=== PATIENT | female | born 1985 | race Asian ===

== ENCOUNTER 2017-12-09 16:03 | Emergency (ER) | payer SELFPAY ==
[~2017-12-09] VITALS: Ht 160 cm; Wt 57.6 kg
[2017-12-09 17:09] LABS: APPEARANCE,URINE SLIGHTLY CLOUDY; BILIRUBIN, URINE NEGATIVE (NEGATIVE); COLOR,URINE AMBER; GLUCOSE, URINE (UA) NEGATIVE (NEGATIVE); KETONES,URINE 1+ (NEGATIVE); LEUKOCYTE ESTERASE ,URINE NEGATIVE (NEGATIVE); NITRITE,URINE NEGATIVE (NEGATIVE); PH,URINE 8 (4.5-8.0); PROTEIN,URINE NEGATIVE (NEGATIVE); UROBILINOGEN,URINE NORMAL MG/DL (0.0-1.0)
[2017-12-09 17:25] LABS: EOSINOPHILS % (AUTO) 0.7 % (0.0-3.0); HEMATOCRIT 42.7 % (37.0-47.0); HEMOGLOBIN 14.6 G/DL (12.0-16.0); LYMPHOCYTES % (AUTO) 32.3 % (20.0-45.0); MEAN CORPUSCULAR VOLUME 81 FL (80-99); MONOCYTES % (AUTO) 6.8 % (1.0-10.0); NEUTROPHILS % (AUTO) 59.3 % (45.0-75.0); PLATELET COUNT 304 K/UL (150-450); RED BLOOD COUNT 5.28 M/UL (4.20-5.40); WHITE BLOOD COUNT 8.6 K/UL (4.8-10.8)
[2017-12-09 17:28] LABS: ANION GAP 7 mmol/L (5-15); BLOOD UREA NITROGEN 18 mg/dL (7-18); CALCIUM 9.3 MG/DL (8.5-10.1); CARBON DIOXIDE 29 MMOL/L (21-32); CHLORIDE 103 MMOL/L (98-107); CREATININE 0.8 MG/DL (0.55-1.30); POTASSIUM 3.5 MMOL/L (3.5-5.1); SODIUM 139 MMOL/L (136-145)
[2017-12-09 17:43] LABS: ALANINE AMINOTRANSFERASE 20 U/L (12-78); ALBUMIN/GLOBULIN RATIO 1.1 (1.0-2.7); ALKALINE PHOSPHATASE 87 U/L (46-116); ASPARTATE AMINO TRANSFERASE 15 U/L (15-37); BILIRUBIN,TOTAL 0.4 MG/DL (0.2-1.0); CREATINE KINASE 108 U/L (26-308)
[2017-12-09 18:00] VITALS: BP 112/82
--- NOTE | 2017-12-09 18:14 | Emergency Room Report ---
History of Present Illness General Chief Complaint: Dizziness Source: Patient Present Illness HPI Patient presents with weakness and dizziness that began on Tuesday. She feels that she is about to pass out. She also feels shaky. She thought that she had been working out excessively and that was related to that possible dehydration. She taken more fluids but this didn't help. She's had some palpitations. Denies any headache. She feels nauseated but has not vomited. There is no change in stool. Her last period was the end of last month by the and normal for her. She doesn't believe she is . There is some stress with her job. Denies any previous medical problems. She drank alcohol last weekend. Smokes THC, no new supplier. No ear pain, tinitis, sore throat, dyspnea, chest pain, abdominal pain, dysuria , extremity pain, rashes. No ill contacts or recent travel Allergies: Coded Allergies: No Known Allergies (Unverified , 12/09/17) Patient History Past Medical History: see triage record Social History: Reports: smoking - rare, alcohol use; Denies: drug use Social History Narrative commercial real estate assistant Now: No Reviewed Nursing Documentation: PMH: Agreed; PSxH: Agreed Nursing Documentation-PMH Past Medical History: No History, Except For Hx Asthma: Yes Review of Systems All Other Systems: negative except mentioned in HPI Physical Exam Vital Signs Date Time Temp Pulse Resp B/P (MAP) Pulse Ox O2 Delivery O2 Flow Rate FiO2 12/09/17 16:07 98.7 70 15 118/88 97 Room Air 98.8 Sp02 EP Interpretation: reviewed, normal General Appearance: well appearing, no apparent distress, GCS 15 Head: normocephalic Eyes: bilateral eye normal inspection, bilateral eye PERRL, bilateral eye EOMI ENT: moist mucus membranes Neck: supple Respiratory: lungs clear, normal breath sounds Cardiovascular #1: regular rate, rhythm Cardiovascular #2: 2+ radial (R) Gastrointestinal: normal inspection, normal bowel sounds, non tender, no mass, non-distended Musculoskeletal: back normal, gait/station normal, normal range of motion Neurologic: alert, oriented x3, technology specialist III-XII nml as tested, motor strength/tone normal, DTRs symmetric, sensory intact, cerebellar normal, normal gait, speech normal Psychiatric: mood/affect normal - slightly anxious Skin: normal inspection, warm/dry Medical Decision Making Diagnostic Impression: Primary Impression: Weakness Additional Impression: Dizziness ER Course Patient presents with dizziness and weakness for 2 days. Differential includes viral syndrome, dehydration, electrolyte imbalance, new-onset diabetes, thyroid disorder, , cardiac cause amongst others. Evaluation will be with EKG and labs. Patient will be treated with IV hydration and cardiac observation. EKG no injury/abnormality. Labs with normal CBC, CMP. ESR normal. TSH normal. Improved with IV hydration and observation. No longer "shaky". Discussed results and need for further evaluation. Patient stable for outpatient observation and treatment. Laboratory Tests Test 12/09/17 16:45 White Blood Count 8.6 K/UL (4.8-10.8) Red Blood Count 5.28 M/UL (4.20-5.40) Hemoglobin 14.6 G/DL (12.0-16.0) Hematocrit 42.7 % (37.0-47.0) Mean Corpuscular Volume 81 FL (80-99) Mean Corpuscular Hemoglobin 27.7 PG (27.0-31.0) Mean Corpuscular Hemoglobin Concent 34.2 G/DL (32.0-36.0) Red Cell Distribution Width 13.0 % (11.6-14.8) Platelet Count 304 K/UL (150-450) Mean Platelet Volume 6.6 FL (6.5-10.1) Neutrophils (%) (Auto) 59.3 % (45.0-75.0) Lymphocytes (%) (Auto) 32.3 % (20.0-45.0) Monocytes (%) (Auto) 6.8 % (1.0-10.0) Eosinophils (%) (Auto) 0.7 % (0.0-3.0) Basophils (%) (Auto) 1.0 % (0.0-2.0) Erythrocyte Sedimentation Rate 10 MM/HR (0-20) Prothrombin Time 10.6 SEC (9.30-11.50) Prothrombin Time INR 1.0 (0.9-1.1) PTT 26 SEC (23-33) Urine Color Kajal Urine Appearance Slightly cloudy Urine pH 8 (4.5-8.0) Urine Specific [place] 1.015 (1.005-1.035) Urine Protein Negative (NEGATIVE) Urine Glucose (UA) Negative (NEGATIVE) Urine Ketones 1+ (NEGATIVE) H Urine Blood Negative (NEGATIVE) Urine Nitrite Negative (NEGATIVE) Urine Bilirubin Negative (NEGATIVE) Urine Ictotest Negative (NEGATIVE) Urine Urobilinogen Normal MG/DL (0.0-1.0) Urine Leukocyte Esterase Negative (NEGATIVE) Urine RBC 0 /HPF (0 - 2) Urine WBC 0-2 /HPF (0 - 2) Urine Squamous Epithelial Cells Moderate /LPF (NONE/OCC) H Urine Bacteria Moderate /HPF (NONE) H Urine HCG, Qualitative Negative (NEGATIVE) Sodium Level 139 MMOL/L (136-145) Potassium Level 3.5 MMOL/L (3.5-5.1) Chloride Level 103 MMOL/L (98-107) Carbon Dioxide Level 29 MMOL/L (21-32) Anion Gap 7 mmol/L (5-15) Blood Urea Nitrogen 18 mg/dL (7-18) Creatinine 0.8 MG/DL (0.55-1.30) Estimate Glomerular Filtration Rate > 60 mL/min (>60) Glucose Level 96 MG/DL (74-106) Calcium Level 9.3 MG/DL (8.5-10.1) Total Bilirubin 0.4 MG/DL (0.2-1.0) Aspartate Amino Transferase (AST) 15 U/L (15-37) Alanine Aminotransferase (ALT) 20 U/L (12-78) Alkaline Phosphatase 87 U/L (46-116) Total Creatine Kinase 108 U/L (26-308) Troponin I 0.000 ng/mL (0.000-0.056) Total Protein 7.7 G/DL (6.4-8.2) Albumin 4.0 G/DL (3.4-5.0) Globulin 3.7 g/dL Albumin/Globulin Ratio 1.1 (1.0-2.7) Thyroid Stimulating Hormone (TSH) 1.100 uiU/mL (0.358-3.740) Urine Opiates Screen Negative (NEGATIVE) Urine Barbiturates Screen Negative (NEGATIVE) Phencyclidine (PCP) Screen Negative (NEGATIVE) Urine Amphetamines Screen Negative (NEGATIVE) Urine Benzodiazepines Screen Negative (NEGATIVE) Urine Cocaine Screen Negative (NEGATIVE) Urine Marijuana (THC) Screen Positive (NEGATIVE) H EKG Diagnostic Results Rate: normal Rhythm: NSR ST Segments: no acute changes Rhythm Strip Diag. Results EP Interpretation: yes Rhythm: NSR, no PVC's, no ectopy Last Vital Signs Date Time Temp Pulse Resp B/P (MAP) Pulse Ox O2 Delivery O2 Flow Rate FiO2 12/09/17 20:05 98.1 77 18 112/66 100 Room Air 98.1 Status: improved Disposition: HOME, SELF-CARE Condition: Improved Scripts Ondansetron Odt* (ZOFRAN ODT*) 4 Mg Tab.rapdis 4 MG BC EVERY 8 HOURS, #4 TAB 1 Refill Prov: Isai Ba M.D. 12/09/17 Referrals: NOT CHOSEN REYNALDO/,REFERRING (PCP) Isai Ba M.D. Dec 09, 2017 18:14
[2017-12-09] MEDS ORDERED: ONDANSETRON ODT4 MG BC (19:37)
[2017-12-09 20:05] VITALS: BP 112/66
--- NOTE | 2017-12-11 13:55 | Cardiology Report ---
APPROVED REPORT EKG Measurement Heart [id number] Normal sinus rhythm Normal ECG
== END 2017-12-09 20:05 | disposition home or self-care (01) ==
LOC: EMR 16:42
DX: R53.1 Weakness (principal); R42 Dizziness and giddiness; Z87.891 Personal history of nicotine dependence; F12.90 Cannabis use, unspecified, uncomplicated; Z72.89 Other problems related to lifestyle; R00.2 Palpitations
CPT/HCPCS: 36415; 80053; 80307; 81003; 81025; 82550; 84443; 84484; 85025; 85610; 85651; 85730; 87086; 93005; 96361; 96374; 99284; J2405

== ENCOUNTER 2019-02-02 11:09 | Emergency (ER) | payer SELFPAY ==
[~2019-02-02] VITALS: Ht 160 cm; Wt 57.6 kg
[~2019-02-02 11:09] MED LIST: ONDANSETRON ODT4 MG BC
--- NOTE | 2019-02-02 11:30 | NUR ---
ED Nurse Note: Pt walked in ED from home, c/o swelling, pain on left 4th toe; patient states 'I hit the corner of the couch hard' x5 days ago. Per patient, swelling worsening the last 2 days. Attempted to relieve pain with Motrin, last taken last night. No open wounds noted on the left 4th toe, skin intact.
--- NOTE | 2019-02-02 11:41 | NUR ---
ED Nurse Note: xray at bedside
--- NOTE | 2019-02-02 12:13 | Emergency Room Report ---
History of Present Illness General Chief Complaint: Lower Extremity Injury Source: Patient (Maria Del Carmen Downs) Present Illness HPI 33-year-old female presents to the emergency department complaining of 8 out of 10 severity localized pain to the left fourth toe x2 days. Patient reports she stubbed her toe 2 days ago. Patient also reports that yesterday she had to wear high heels for salsa class and this exacerbated her pain significantly. Patient reports swelling she states she has been using ice that she feels is making the swelling worse. Patient denies any relieving factors at this time. No other previous injury to this extremity. Denies paresthesias, open wounds, bleeding or bruising. (Maria Del Carmen Downs) Allergies: Coded Allergies: No Known Allergies (Unverified , 12/09/17) Patient History Past Medical History: see triage record Past Surgical History: none Pertinent Family History: none Now: No Reviewed Nursing Documentation: PMH: Agreed; PSxH: Agreed (Maria Del Carmen Downs) Nursing Documentation-PMH Past Medical History: No Stated History Hx Asthma: Yes (Maria Del Carmen Downs) Review of Systems All Other Systems: negative except mentioned in HPI (Maria Del Carmen Downs) Physical Exam Vital Signs Date Time Temp Pulse Resp B/P (MAP) Pulse Ox O2 Delivery O2 Flow Rate FiO2 02/02/19 11:24 98.4 77 16 111/72 (85) 98 Room Air Sp02 EP Interpretation: reviewed, normal General Appearance: no apparent distress, alert, GCS 15, non-toxic Head: normocephalic, atraumatic Eyes: bilateral eye normal inspection, bilateral eye PERRL ENT: hearing grossly normal, normal voice Neck: full range of motion Respiratory: lungs clear, normal breath sounds, speaking full sentences Cardiovascular #1: regular rate, rhythm, normal capillary refill Cardiovascular #2: 2+ dorsalis pedis (R), 2+ dorsalis pedis (L) Musculoskeletal: back normal, gait/station normal - mildly compensatory favoring the left foot, normal range of motion, tender - LEft 4th toe, swelling noted. Neurologic: alert, oriented x3, responsive, motor strength/tone normal, sensory intact, speech normal, grossly normal Psychiatric: judgement/insight normal Skin: normal color (Maria Del Carmen Downs) Medical Decision Making PA Attestation Dr. Ba Is my supervising Physician whom patient management has been discussed with. (Maria Del Carmen Downs) Diagnostic Impression: Primary Impression: Sprain of toe, fourth, left Qualified Codes: S93.505A - Unspecified sprain of left lesser toe(s), initial encounter ER Course 33-year-old female presents to the emergency department complaining of 8 out of 10 severity localized pain to the left fourth toe x2 days. Patient reports she stubbed her toe 2 days ago. Patient also reports that yesterday she had to wear high heels for salsa class and this exacerbated her pain significantly. Patient reports swelling she states she has been using ice that she feels is making the swelling worse. Patient denies any relieving factors at this time. No other previous injury to this extremity. Denies paresthesias, open wounds, bleeding or bruising. Ddx considered but are not limited to Fracture, dislocation, contusion, Sprain/ Strain/Spasm Vital signs: are WNL, pt. is afebrile H&PE are most consistent with musculoskeletal injury will perform imaging to r/ o fractures/dislocations. ORDERS: - X-ray Left foot 3 views - negative for fx, Dislocation, or significant soft tissue injury, per preliminary read in ED, and signed by FREDY Downs , my supervising physician has reviewed, and agrees with my interpretation. ED INTERVENTIONS: - Tylenol PO -Kuldeep Tape Splint applied to the 4th and 3rd left toes by senior engineering tech. Pt. remains neurovascularly intact. DISCHARGE: At this time pt. is stable for d/c to home. Will provide printed patient care instructions, and any necessary prescriptions. Care plan and follow up instructions have been discussed with the patient prior to discharge. (Maria Del Carmen Downs) Other X-Ray Diagnostic Results Other X-Ray Diagnostic Results : X-Ray ordered: Left Foot # of Views/Limited Vs Complete: 3 View Indication: Pain EP Interpretation: Yes PA Xray: Interpretation reviewed, by supervising MD, and agrees with findings. Interpretation: no dislocation, no soft tissue swelling, no fractures Impression: No acute disease Electronically Signed by: Maria Del Carmen Downs PA-C (Maria Del Carmen Downs) Other X-Ray Diagnostic Results : Electronically Signed by: Flori Gomes documentation of Xray reviewed by me and is accurate, Isai Ba MD (Isai Ba MD) Last Vital Signs Date Time Temp Pulse Resp B/P (MAP) Pulse Ox O2 Delivery O2 Flow Rate FiO2 02/02/19 11:24 98.4 77 16 111/72 (85) 98 Room Air Status: improved (Maria Del Carmen Downs) Disposition: HOME, SELF-CARE Condition: Stable Scripts Ibuprofen* (MOTRIN*) 600 Mg Tablet 600 MG ORAL THREE TIMES A DAY, #30 TAB 0 Refills Prov: Maria Del Carmen Downs 02/02/19 Departure Forms: Return to Work Return to Work Date: Feb 05, 2019 Work Restrictions: No Heavy Lifting, No Prolonged Standing Other Restrictions: NO dancing, no wearing high heels. Return to Full Activity: Feb 06, 2019 Patient Instructions: Foot Sprain Additional Instructions: Take medications as directed. Follow up with a Primary Care Provider in 3-5 days, even if your symptoms have resolved. --Please review list of primary care clinics, if you do not already have a primary care provider Return sooner to ED if new symptoms occur, or current symptoms become worse. - Please note that this Emergency Department Report was dictated using [employer] breaking machine operator technology software, occasionally this can lead to erroneous entry secondary to interpretation by the dictation equipment. Maria Del Carmen Downs Feb 02, 2019 12:13 Isai Ba MD Feb 04, 2019 17:34
[2019-02-02] MEDS ORDERED: IBUPROFEN600 MG ORAL (12:14)
[2019-02-02 12:27] VITALS: BP 121/70
--- NOTE | 2019-02-02 12:28 | NUR ---
ER DISCHARGE NOTE: Patient is cleared to be discharged per ERMD, pt is aox4, on room air, with stable vital signs. pt was given dc and prescription instructions, pt was able to verbalize understanding, pt id band and removed without complications. pt is able to ambulate with steady gait. pt took all belongings.ED Nurse Note:
--- NOTE | 2019-02-02 14:29 | Diagnostic Imaging Report ---
Indication: Foot pain Technique: XRAY Foot Complete L Comparison: None Findings: Bone mineralization within normal limits. No acute fractures identified. Lisfranc alignment of the foot is maintained. No radiopaque foreign body identified. Impression: No evidence of acute fracture or dislocation.
== END 2019-02-02 12:28 | disposition home or self-care (01) ==
LOC: EMR 12:25
DX: S93.505A Unspecified sprain of left lesser toe(s), initial encounter (principal); J45.909 Unspecified asthma, uncomplicated; W22.8XXA Striking against or struck by other objects, initial encounter; Y92.9 Unspecified place or not applicable
CPT/HCPCS: 99283